=== PATIENT | male | born 1965 | race Hispanic/Latino ===

== ENCOUNTER 2016-09-12 20:28 | Inpatient (IN) | payer OTHER ==
--- NOTE | 2016-09-12 21:45 | ED PDOC ---
HPI: Chest Pain Time Seen by Provider: 09/12/16 20:44 Chief Complaint (Nursing): Abdominal Pain Chief Complaint (Provider): Right Rib Pain History Per: Patient History/Exam Limitations: no limitations Onset/Duration Of Symptoms: Days (since yesterday) Current Symptoms Are (Timing): Still Present Severity: Moderate Exacerbating Factors: Deep Breathing (causes pain to radiate up towards right shoulder) Additional Complaint(s): Osei Harris is a 51 year old male, with a past medical history of a previous pulmonary embolism (stemming from DVT induced by long plane ride), who presents to the ED on 09/12/16, accompanied by his , for the evaluation of a moderate amount of atraumatic, right-sided rib pain that he has experienced since yesterday; with reported radiation towards his right shoulder upon deep inspiration. Though pain has improved since onset, patient is still concerned regarding possible new PE, prompting ED visit. Denies shortness of breath, dizziness/lightheadedness, extremity pain/swelling or recent long distance travel/limb immobilization. Of note, patient does admit to having exercised recently in relation to onset of pain. PMD: Gavin Rodarte Past Medical History Reviewed: Historical Data, Nursing Documentation, Vital Signs Vital Signs: Last Vital Signs Temp 97.7 F 09/12/16 20:30 Pulse 82 09/12/16 20:30 Resp 18 09/12/16 20:30 BP 151/92 H 09/12/16 20:30 Pulse Ox 99 09/13/16 00:28 - Medical History PMH: Deep Vein Thrombosis, Pulmonary Embolism - Surgical History Surgical History: No Surg Hx - Family History Family History: States: Unknown Family Hx - Living Arrangements Living Arrangements: With Family - Social History Current smoker - smoking cessation education provided: No Alcohol: None Drugs: Denies - Allergies Allergies/Adverse Reactions: Allergies Allergy/AdvReac Type Severity Reaction Status Date / Time No Known Allergies Allergy Verified 09/12/16 20:34 Review of Systems Cardiovascular: Negative for: Edema Respiratory: Negative for: Shortness of Breath Musculoskeletal: Positive for: Other (right-sided rib pain w/radiation to right shoulder upon deep inspiration). Negative for: Leg Pain Physical Exam - Reviewed Nursing Documentation Reviewed: Yes Vital Signs Reviewed: Yes - Physical Exam Appears: Positive for: Non-toxic, No Acute Distress Head Exam: Positive for: ATRAUMATIC, NORMOCEPHALIC Skin: Positive for: Normal Color, Warm, Dry Eye Exam: Positive for: Normal appearance, PERRL Cardiovascular/Chest: Positive for: Regular Rate, Rhythm. Negative for: Edema, Murmur Respiratory: Positive for: Normal Breath Sounds. Negative for: Respiratory Distress Extremity: Positive for: Normal ROM (FROM x4 extremities). Negative for: Swelling Neurologic/Psych: Positive for: Alert, Oriented - Laboratory Results Result Diagrams: 09/12/16 22:19 09/12/16 22:19 - ECG O2 Sat by Pulse Oximetry: 99 (RA) Pulse Ox Interpretation: Normal - Radiology X-Ray: Interpreted by Me, Viewed By Me X-Ray Interpretation: No Acute Disease Medical Decision Making Medical Decision Makin:44 Initial Impression: right-sided rib pain Initial Plan: * CXR * D-Dimer * Flexeril 10mg PO * Reevaluation CXR is negative as read by MD provider. Pending D-Dimer. 22:04 D-Dimer is elevated at 2.67. Will order CT Angio Chest, Labs, Troponin I, PTT, PT and place onto site monitor. 0000: Received call from [facility] radiologist that patient has bilateral pulmonary emboli. Case discussed with Dr. Springer who accepts admission. Informed patient of diagnosis and patient admitted to obs tele. Scribe Attestation: Documented by Hamida De La Vega, acting as a scribe for Taran Garcia MD. Provider Scribe Attestation: All medical record entries made by the Scribe were at my direction and personally dictated by me. I have reviewed the chart and agree that the record accurately reflects my personal performance of the history, physical exam, medical decision making, and the department course for this patient. I have also personally directed, reviewed, and agree with the discharge instructions and disposition. Disposition - Clinical Impression Clinical Impression: Bilateral pulmonary embolism - Patient ED Disposition Is Patient to be Admitted: Yes Discussed With DrLeena: Santo Springer - Disposition Disposition Time: 00:00 Condition: STABLE
[2016-09-12 22:26] LABS: BASO # 0.1 K/uL (0.0-0.2); BASO % 0.7 % (0.0-2.0); EOS # 0.2 K/uL (0.0-0.7); EOS % 2.3 % (0.0-4.0); HEMATOCRIT 43.9 % (35.0-51.0); LYMPH % 27.6 % (20.0-40.0); MEAN CELL VOLUME 91.4 fl (80.0-94.0); MEAN CORPUSCULAR HEMOGLOBIN 30.8 pg (27.0-31.0); MEAN CORPUSCULAR HGB CONC 33.7 g/dL (33.0-37.0); MONO # 0.9 K/uL (0.0-0.8); MONO % 7.9 % (0.0-10.0); NEUT # 6.7 K/uL (1.8-7.0); NEUT % 61.5 % (50.0-75.0); NRBC % 0.2 % (0.0-0.0); RED CELL DISTRIBUTION WIDTH 13.1 % (11.5-14.5); WHITE BLOOD COUNT 10.8 K/uL (4.8-10.8)
[2016-09-12 22:27] LABS: PARTIAL THROMBOPLASTIN TIME 26.6 SECONDS (23.3-32.5)
[2016-09-12 22:45] LABS: BLOOD UREA NITROGEN 28 mg/dl (9-20); CALCIUM 9.6 mg/dL (8.4-10.2); CARBON DIOXIDE 24 mmol/L (22-30); CHLORIDE 102 mmol/L (98-107); GFR AFRICAN-AMERICAN > 60; GLUCOSE,RANDOM 92 mg/dL (75-110); POTASSIUM 4.2 MMOL/L (3.6-5.0); SODIUM 138 mmol/l (132-148)
[2016-09-12] MEDS ORDERED: Sodium Chloride 0.9% 50 ML IV ONE (22:57)
[2016-09-12] MEDS ORDERED: Iodixanol 320 MG/ML 100 ML BOTTLE IV ONE (22:57)
[2016-09-13] MEDS ORDERED: Enoxaparin 100 mg Syringe SC STA (00:03)
--- NOTE | 2016-09-13 07:41 | CARD ---
APPROVED REPORT EKG Measurement Heart [id number] <Conclusion> Normal sinus rhythm Normal ECG
--- NOTE | 2016-09-13 08:07 | CT ---
PROCEDURE: CT Chest with contrast (Pulmonary Angiogram) HISTORY: hx of PE c/o of R sided rib/CP, r/o PE COMPARISON: None available. TECHNIQUE: Axial computed tomography images were obtained of the chest in the pulmonary arterial phase of enhancement. Coronal and sagittal reformatted images were created and reviewed. Maximum intensity projection (MIP) reconstructed images in the following planes: Axial projection only. Intravenous contrast dose: 99 cc Visipaque 320 Mean Hounsfield unit values in the main pulmonary artery: 198.1 Radiation dose: Total exam DLP = 227.42 mGy-cm. FINDINGS: PULMONARY ARTERIES: Bilateral lower lobe pulmonary emboli primarily at the segmental level affecting lower lobe branches right greater than left. Additional small upper lobe emboli on the right. AORTA: No acute findings. No thoracic aortic aneurysm. LUNGS: Right lower lobe infiltrate which may represent subsegmental infarction basilar segment right lower lobe. PLEURAL SPACES: Unremarkable. No effusion or pneuomothorax. HEART: Unremarkable. No cardiomegaly. No significant pericardial effusion. LYMPH NODES: No lymphadenopathy. BONES, CHEST WALL: Unremarkable. No fracture or destructive lesion OTHER FINDINGS: Unremarkable. IMPRESSION: Acute bilateral lower lobe pulmonary emboli and to a lesser extent right upper lobe embolic disease. No central pulmonary emboli. Findings right lower lobe may represent early pulmonary parenchymal infarction. Concordant results (preliminary interpretation) provided by [employer]. Procedure Completed: 23:13. Preliminary ([facility]) Report: Dictated and Authenticated: 23:52. Final Interpretation: 08:05. September 13, 2016.
[2016-09-13 08:42] LABS: BASO % 0.4 % (0.0-2.0); EOS # 0.2 K/uL (0.0-0.7); EOS % 2.1 % (0.0-4.0); LYMPH # 2.1 K/uL (1.0-4.3); LYMPH % 23.2 % (20.0-40.0); MEAN CELL VOLUME 91.4 fl (80.0-94.0); MEAN CORPUSCULAR HEMOGLOBIN 30.6 pg (27.0-31.0); MEAN CORPUSCULAR HGB CONC 33.5 g/dL (33.0-37.0); MEAN PLATELET VOLUME 8.3 fl (7.2-11.7); MONO # 0.8 K/uL (0.0-0.8); MONO % 8.8 % (0.0-10.0); NEUT # 5.8 K/uL (1.8-7.0); NEUT % 65.5 % (50.0-75.0); WHITE BLOOD COUNT 8.9 K/uL (4.8-10.8)
[2016-09-13 08:48] LABS: ALB/GLOB RATIO 1.2 (1.0-2.1); ALKALINE PHOSPHATASE 69 U/L (38-126); ALT/SGPT 35 U/L (21-72); AST/SGOT 25 U/L (17-59); BILIRUBIN,TOTAL 1.1 mg/dl (0.2-1.3); BLOOD UREA NITROGEN 20 mg/dl (9-20); CALCIUM 9.1 mg/dL (8.4-10.2); CARBON DIOXIDE 23 mmol/L (22-30); CHLORIDE 103 mmol/L (98-107); GFR AFRICAN-AMERICAN > 60; GLUCOSE,RANDOM 98 mg/dL (75-110); POTASSIUM 4.1 MMOL/L (3.6-5.0); SODIUM 136 mmol/l (132-148); TOTAL PROTEIN 7.6 G/DL (6.3-8.2)
--- NOTE | 2016-09-13 09:40 | US ---
Bilateral lower extremity venous Doppler dated 09/13/2016. History: Rule out DVT. Duplex interrogation of the deep veins of the right and left lower extremities performed in standard fashion. No prior study available for comparison. Findings: There is noncompressible thrombus within the left posterior tibial vein consistent with DVT. The remaining deep veins of the left lower extremity as well as the visualized deep veins right lower extremity exhibit normal flow, compressibility augmentation without evidence of DVT. Impression: Noncompressible thrombus (DVT) within the left posterior tibial vein. Findings discussed with primary Nurse Horacio at approximately at 9:35 a.m. with written down and read back verification.
--- NOTE | 2016-09-13 12:01 | RAD ---
HISTORY: R sided rib/chest pain COMPARISON: No prior. TECHNIQUE: Chest PA and lateral FINDINGS: LUNGS: No active pulmonary disease. PLEURA: No significant pleural effusion identified. No pneumothorax apparent. CARDIOVASCULAR: Normal. OSSEOUS STRUCTURES: No significant abnormalities. VISUALIZED UPPER ABDOMEN: Normal. OTHER FINDINGS: None. IMPRESSION: No active disease. Concordant results with the preliminary interpretation rendered by the emergency department physician procedure.
--- NOTE | 2016-09-13 14:18 | CP.PCM.HP ---
<Litzy Blanco - Last Filed: 09/13/16 15:04> History of Present Illness - History of Present Illness History of Present Illness: Pt is a 51 year old male, with a pmhx of Factor V leiden and pulmonary embolism 11 yrs ago (stemming from DVT induced by long plane ride), who presents to the ED with complaints of right-sided rib pain that he experienced since the day before; with reported radiation towards his right shoulder upon deep inspiration. Though pain has improved since onset, patient is still concerned regarding possible new PE, prompting ED visit. Denies shortness of breath, dizziness/lightheadedness, extremity pain/swelling or recent long distance travel/limb immobilization. Pt was seen and evaluated at bedside this morning, states pain in controlled, denies any shortness breath. states when he first got the PE 11 yrs ago, he was started on warfarin but told to only take it 3 days prior to flying only. but he has not taken warfarin for over a year now, and traveled by plane to [place] a month ago PMD: Gavin Rodarte Present on Admission - Present on Admission Any Indicators Present on Admission: No Review of Systems - Review of Systems All systems: reviewed and no additional remarkable complaints except Review of Systems: Per HPI Past Patient History - Past Social History Alcohol: None Drugs: Denies - PULMONARY Hx Pulmonary Embolism: Yes - PSYCHIATRIC Hx Substance Use: No Meds Allergies/Adverse Reactions: Allergies Allergy/AdvReac Type Severity Reaction Status Date / Time No Known Allergies Allergy Verified 09/12/16 20:34 Physical Exam - Constitutional Appears: No Acute Distress - Head Exam Head Exam: NORMOCEPHALIC - Eye Exam Eye Exam: Normal appearance - ENT Exam ENT Exam: Mucous Membranes Moist - Respiratory Exam Respiratory Exam: Clear to Auscultation Bilateral, NORMAL BREATHING PATTERN. absent: Rhonchi, Wheezes - Cardiovascular Exam Cardiovascular Exam: REGULAR RHYTHM - GI/Abdominal Exam GI & Abdominal Exam: Normal Bowel Sounds, Soft. absent: Tenderness - Extremities Exam Extremities exam: Positive for: normal inspection. Negative for: calf tenderness, joint swelling, tenderness - Neurological Exam Neurological exam: Alert, CN II-XII Intact, Oriented x3 - Skin Skin Exam: Normal Color Results - Vital Signs Recent Vital Signs: Last Vital Signs Temp 98.2 F 09/13/16 07:27 Pulse 85 09/13/16 07:27 Resp 18 09/13/16 07:27 BP 134/74 09/13/16 07:27 Pulse Ox 98 09/13/16 07:27 - Labs Result Diagrams: 09/13/16 08:20 09/13/16 08:20 Labs: Laboratory Results - last 24 hr 09/13/16 08:20 WBC 8.9 RBC 4.71 Hgb 14.4 Hct 43.0 MCV 91.4 MCH 30.6 MCHC 33.5 RDW 13.0 Plt Count 213 MPV 8.3 Neut % (Auto) 65.5 Lymph % (Auto) 23.2 [place] % (Auto) 8.8 Eos % (Auto) 2.1 Baso % (Auto) 0.4 Neut # 5.8 Lymph # 2.1 [place] # 0.8 Eos # 0.2 Baso # 0.0 Sodium 136 Potassium 4.1 Chloride 103 Carbon Dioxide 23 Anion Gap 14 BUN 20 Creatinine 0.9 Est GFR ( Amer) > 60 Est GFR (Non-Af Amer) > 60 Random Glucose 98 Calcium 9.1 Total Bilirubin 1.1 AST 25 ALT 35 Alkaline Phosphatase 69 Troponin I < 0.0120 Total Protein 7.6 Albumin 4.1 Globulin 3.4 Albumin/Globulin Ratio 1.2 Assessment & Plan - Assessment and Plan (Free Text) Assessment: 51 y/o male with history of Factor V Leiden and previous PE and DVT admitted for a bilateral PE Plan: Bilateral Pulmonary Embolism on therapeutic dose of lovenox - 90mg Q12 SC Hematology consulted- Dr. kulkarni consulted Hypercoagulable studies done previously- known to have factor v Leiden deficiency diet- regular pain management as ordered <Santo Springer - Last Filed: 09/14/16 09:48> Results - Vital Signs Recent Vital Signs: Last Vital Signs Temp 98.3 F 09/14/16 08:14 Pulse 82 09/14/16 08:14 Resp 18 09/14/16 08:14 BP 118/74 09/14/16 08:14 Pulse Ox 96 09/14/16 08:14 - Labs Result Diagrams: 09/13/16 08:20 09/13/16 08:20 Assessment & Plan - Assessment and Plan (Free Text) Plan: I was with Dr Blanco during evaluation and I examined patient. Discussed with Dr Blanco and patient re treatment options including possible filter insertion. Called hematology. will continue Lovenox at txtic dose. will need buttermaker anticoagulation.
[2016-09-13] MEDS: Enoxaparin 100 mg Syringe SC SCH ×2 (15:10→15:12)
[2016-09-13] MEDS ORDERED: Oxycodone/Acetaminophen 5/325 mg Tab PO PRN (16:48)
--- NOTE | 2016-09-13 21:27 | CP.PCM.CON ---
<Jose De Jesus Calhoun - Last Filed: 09/13/16 21:38> History of Present Illness - History of Present Illness History of Present Illness: Surgery Consult: Dr. Vaughn Reason for consult: IVC filter placement for recurrent PE and DVT HPI: Patient is a 51 y/o male w/ significant pmhx of PE and factor V Leiden deficiency presents complaining of acute onset right lower lateral chest pain w / inspiration. He states the pain started acutely about 48 hours ago and progressively got worse prompting ED visit. He states he noticed some calf "cramping" in the LLE about 3 days prior to pleuritic pain onset but attributed it to exercise. He states he had similar episode in the past about 11 years ago in which he was diagnosed with PE. Patient reports at that time he had traveled to [facility] and noticed similar pain to as described above. Patient did not have it evaluated until he returned to the [facility]. He was admitted to the hospital and was started on lovenox at that time. Patient underwent hypercoagulable work up as well which showed factor V Leiden deficiency. Patient was transitioned to Warfarin which he continued for 3-4 months. After treatment, patient was instructed to take warfarin 3 days prior to any flight and 3 days post flight; however, he did not have to continue daily anticoagulation therapy. Patient recently traveled to [facility] 3-4 weeks ago and states he did not take Warfarin prior to flying due to flight being very short. Patient came to ED on this occurrence for evaluation of pain concerned of having recurrent PE. Patient evaluated with CT chest which showed acute bilateral segmental PE on right > left side. Patient is also noted to have DVT in LLE tibial vein. Currently, patient denies any resting chest pain or SOB. He denies pain in the LE. He reports having pain to the right lateral inferior chest wall with deep breathing which is well controlled with pain medication. PMH: Factor V Lieden, PE PSH: denies Social: denies ETOH, tobacco, or drug abuse. Active male w/ exercise and bike riding. Review of Systems - Review of Systems Review of Systems: unless stated in HPI - Constitutional Constitutional: absent: Chills, Fever - EENT Eyes: absent: Blurred Vision, Change in Vision Nose/Mouth/Throat: absent: Nasal Congestion, Sinus Pain - Cardiovascular Cardiovascular: Chest Pain (on the right lateral inferior chest wall, pleuritic in nature ). absent: Chest Pain at Rest, Dyspnea, Leg Edema, Pedal Edema, Syncope - Respiratory Respiratory: Pain on Inspiration. absent: Cough, Wheezing, Excessive Mucous Production - Gastrointestinal Gastrointestinal: absent: Abdominal Pain, Cramping, Diarrhea - Genitourinary Genitourinary: absent: Hematuria, Pyuria - Musculoskeletal Musculoskeletal: absent: Back Pain, Neck Pain - Neurological Neurological: absent: Dizziness, Syncope - Endocrine Endocrine: absent: Polydipsia, Polyphagia - Hematologic/Lymphatic Hematologic: absent: Easy Bleeding, Easy Bruising Past Patient History - Past Medical History & Family History Past Medical History?: Yes - Past Social History Smoking Status: Never Smoked - CARDIAC Hx Cardiac Disorders: No - PULMONARY Hx Respiratory Disorders: Yes Hx Pulmonary Embolism: Yes - NEUROLOGICAL Hx Neurological Disorder: No - HEENT Hx HEENT Problems: No - RENAL Hx Chronic Kidney Disease: No - ENDOCRINE/METABOLIC Hx Endocrine Disorders: No - HEMATOLOGICAL/ONCOLOGICAL Hx Blood Disorders: Yes Other/Comment: Factor V Leiden - INTEGUMENTARY Hx Dermatological Problems: No - MUSCULOSKELETAL/RHEUMATOLOGICAL Hx Musculoskeletal Disorders: No Hx Falls: No - GASTROINTESTINAL Hx Gastrointestinal Disorders: No - GENITOURINARY/GYNECOLOGICAL Hx Genitourinary Disorders: No - PSYCHIATRIC Hx Psychophysiologic Disorder: No Hx Substance Use: No - SURGICAL HISTORY Hx Surgeries: No - ANESTHESIA Hx Anesthesia: No Hx Anesthesia Reactions: No Meds Allergies/Adverse Reactions: Allergies Allergy/AdvReac Type Severity Reaction Status Date / Time No Known Allergies Allergy Verified 09/12/16 20:34 - Medications Medications: Current Medications Enoxaparin Sodium (Lovenox) 90 mg SC Q12@0200,1400 CHERIE PRN Reason: Protocol Last Admin: 09/13/16 15:12 Dose: 90 mg Ketorolac Tromethamine (Toradol) 10 mg PO Q6 PRN PRN Reason: Pain, moderate (4-7) Oxycodone/Acetaminophen (Percocet 5/325 Mg Tab) 2 tab PO Q4 PRN PRN Reason: Pain, severe (8-10) Stop: 09/16/16 19:45 Physical Exam - Constitutional Appears: Well, Non-toxic, No Acute Distress - Head Exam Head Exam: ATRAUMATIC, NORMOCEPHALIC - Eye Exam Eye Exam: EOMI, Normal appearance - ENT Exam ENT Exam: Mucous Membranes Moist - Respiratory Exam Respiratory Exam: NORMAL BREATHING PATTERN. absent: Respiratory Distress - Cardiovascular Exam Cardiovascular Exam: REGULAR RHYTHM. absent: Tachycardia - GI/Abdominal Exam GI & Abdominal Exam: Soft. absent: Distended, Tenderness - Extremities Exam Extremities exam: Positive for: calf tenderness (minimal on left), normal inspection - Neurological Exam Neurological exam: Alert, Oriented x3 - Psychiatric Exam Psychiatric exam: Normal Affect, Normal Mood - Skin Skin Exam: Dry, Intact, Normal Color, Warm Results - Vital Signs Recent Vital Signs: Last Vital Signs Temp 98.6 F 09/13/16 19:27 Pulse 90 09/13/16 19:30 Resp 20 09/13/16 19:30 BP 127/82 09/13/16 19:27 Pulse Ox 97 09/13/16 19:30 - Labs Result Diagrams: 09/13/16 08:20 09/13/16 08:20 Assessment & Plan - Assessment and Plan (Free Text) Assessment: 51 y/o male w/ recurrent PE and DVT w/ underlying hypercoagulable state Plan: -patient will need IVC filter -cont anticoagulation for now -f/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 Vaughn, further recs per him AKWhite PGY1 <Thien Vaughn - Last Filed: 09/14/16 11:51> History of Present Illness - History of Present Illness History of Present Illness: Patient was seen and examined at the bedside. Agree with resident's note above Meds - Medications Medications: Current Medications Enoxaparin Sodium (Lovenox) 90 mg SC Q12@0200,1400 CHERIE PRN Reason: Protocol Last Admin: 09/14/16 02:07 Dose: 90 mg Ketorolac Tromethamine (Toradol) 10 mg PO Q6 PRN PRN Reason: Pain, moderate (4-7) Morphine Sulfate (Morphine) 2 mg IVP Q6 PRN PRN Reason: Pain, severe (8-10) Last Admin: 09/14/16 11:13 Dose: 2 mg Oxycodone/Acetaminophen (Percocet 5/325 Mg Tab) 2 tab PO Q4 PRN PRN Reason: Pain, moderate (4-7) Stop: 09/16/16 19:45 Last Admin: 09/14/16 10:03 Dose: 2 tab Results - Vital Signs Recent Vital Signs: Last Vital Signs Temp 98.3 F 09/14/16 08:14 Pulse 82 09/14/16 09:00 Resp 18 09/14/16 08:14 BP 118/74 09/14/16 08:14 Pulse Ox 96 09/14/16 08:14 - Labs Result Diagrams: 09/13/16 08:20 09/13/16 08:20 Labs: Laboratory Results - last 24 hr 09/14/16 10:51 PT 11.4 H INR 1.10 H Assessment & Plan - Assessment and Plan (Free Text) Plan: Patient wants to be transferred to [place] for further treatment. No surgical intervention at present time, patient does not want to be treated at [facility]. Will sign off, please reconsult as needed
[2016-09-13] MEDS: Oxycodone/Acetaminophen 5/325 mg Tab PO PRN (22:34)
--- NOTE | 2016-09-14 01:47 | CP.PCM.CON ---
History of Present Illness - History of Present Illness History of Present Illness: 51 year old male with a history of factor V Leiden mutation complicated by provoked DVT/PE 11 years ago admitted with recurrent PE/DVT. The patient reports to a recent flight to [place] and notes sharp rib pain and left calf pain. He decided to come to the ER and was found to have PE and LLE DVT. Past medical history: Factor V leiden mutation, DVT/PE Past surgical history: None Family history: Sisters have Factor V Leiden mutation Social history: Denies tobacco, alcohol, and illicit drug use. Allergies: NKA Review of systems: All remaining review of systems including HEENT, cardiovascular, respiratory, gastrointestinal, genitourinary, musculoskeletal, dermatologic, neurologic, and psychiatric are negative unless mentioned in the HPI. Past Patient History - Past Medical History & Family History Past Medical History?: Yes - Past Social History Smoking Status: Never Smoked - CARDIAC Hx Cardiac Disorders: No - PULMONARY Hx Respiratory Disorders: Yes Hx Pulmonary Embolism: Yes - NEUROLOGICAL Hx Neurological Disorder: No - HEENT Hx HEENT Problems: No - RENAL Hx Chronic Kidney Disease: No - ENDOCRINE/METABOLIC Hx Endocrine Disorders: No - HEMATOLOGICAL/ONCOLOGICAL Hx Blood Disorders: Yes Other/Comment: Factor V Leiden - INTEGUMENTARY Hx Dermatological Problems: No - MUSCULOSKELETAL/RHEUMATOLOGICAL Hx Musculoskeletal Disorders: No Hx Falls: No - GASTROINTESTINAL Hx Gastrointestinal Disorders: No - GENITOURINARY/GYNECOLOGICAL Hx Genitourinary Disorders: No - PSYCHIATRIC Hx Psychophysiologic Disorder: No Hx Substance Use: No - SURGICAL HISTORY Hx Surgeries: No - ANESTHESIA Hx Anesthesia: No Hx Anesthesia Reactions: No Meds Allergies/Adverse Reactions: Allergies Allergy/AdvReac Type Severity Reaction Status Date / Time No Known Allergies Allergy Verified 09/12/16 20:34 - Medications Medications: Current Medications Enoxaparin Sodium (Lovenox) 90 mg SC Q12@0200,1400 CHERIE PRN Reason: Protocol Last Admin: 09/13/16 15:12 Dose: 90 mg Ketorolac Tromethamine (Toradol) 10 mg PO Q6 PRN PRN Reason: Pain, moderate (4-7) Oxycodone/Acetaminophen (Percocet 5/325 Mg Tab) 2 tab PO Q4 PRN PRN Reason: Pain, severe (8-10) Stop: 09/16/16 19:45 Last Admin: 09/13/16 22:34 Dose: 2 tab Physical Exam - Head Exam Head Exam: ATRAUMATIC - Eye Exam Eye Exam: Normal appearance - ENT Exam ENT Exam: Mucous Membranes Dry - Respiratory Exam Respiratory Exam: NORMAL BREATHING PATTERN - Cardiovascular Exam Cardiovascular Exam: +S1, +S2 - GI/Abdominal Exam GI & Abdominal Exam: Normal Bowel Sounds - Extremities Exam Extremities exam: Positive for: normal inspection - Neurological Exam Neurological exam: Oriented x3 - Psychiatric Exam Psychiatric exam: Normal Affect, Normal Mood - Skin Skin Exam: Warm Results - Vital Signs Recent Vital Signs: Last Vital Signs Temp 99.7 F H 09/13/16 23:39 Pulse 78 09/13/16 23:39 Resp 19 09/13/16 23:39 BP 119/76 09/13/16 23:39 Pulse Ox 96 09/13/16 23:39 - Labs Result Diagrams: 09/13/16 08:20 09/13/16 08:20 Assessment & Plan (1) Bilateral pulmonary embolism Assessment and Plan: provoked, Factor V Leiden mutation with DVT; for retrievable IVC filter placement evaluation therapeutic anticoagulation; discussed terminal press operator anticoagulation, pt considering pradaxa Thank you for this interesting consult. Status: Acute
[2016-09-14] MEDS ORDERED: Enoxaparin 100 mg Syringe SC SCH (02:00)
[2016-09-14] MEDS: Enoxaparin 100 mg Syringe SC SCH ×2 (02:07→13:21)
[2016-09-14] MEDS: Oxycodone/Acetaminophen 5/325 mg Tab PO PRN ×2 (02:12→06:12)
--- NOTE | 2016-09-14 08:49 | CP.PCM.PN ---
<Garrett Wagoner - Last Filed: 09/14/16 08:51> Subjective - Date & Time of Evaluation Date of Evaluation: 09/14/16 Time of Evaluation: 06:50 - Subjective Subjective: Gen Surg: Dr. Vaughn Patient seen and examined this AM. Patient reports pleuritic pain. States pain medication helps. Patient is concerned about risks vs benefits of IVC filter placement. States he wants to weigh out all of his options before making a decision. Currently denies fever/chills. Reports his leg edema has improved. Review of vitals is normal. Objective - Vital Signs/Intake and Output Vital Signs (last 24 hours): Temp Pulse Resp BP Pulse Ox 98.3 F 82 18 118/74 96 09/14/16 08:14 09/14/16 08:14 09/14/16 08:14 09/14/16 08:14 09/14/16 08:14 - Medications Medications: Current Medications Enoxaparin Sodium (Lovenox) 90 mg SC Q12@0200,1400 CHERIE PRN Reason: Protocol Last Admin: 09/14/16 02:07 Dose: 90 mg Ketorolac Tromethamine (Toradol) 10 mg PO Q6 PRN PRN Reason: Pain, moderate (4-7) Oxycodone/Acetaminophen (Percocet 5/325 Mg Tab) 2 tab PO Q4 PRN PRN Reason: Pain, severe (8-10) Stop: 09/16/16 19:45 Last Admin: 09/14/16 06:12 Dose: 2 tab - Labs Labs: PT 11.0 SECONDS (9.6-11.2) 09/12/16 22:19 INR 1.06 (0.92-1.08) 09/12/16 22:19 APTT 26.6 SECONDS (23.3-32.5) 09/12/16 22:19 - Constitutional Appears: Non-toxic - Head Exam Head Exam: NORMOCEPHALIC - Eye Exam Eye Exam: Normal appearance - ENT Exam ENT Exam: Mucous Membranes Moist - Cardiovascular Exam Cardiovascular Exam: +S1, +S2 - GI/Abdominal Exam GI & Abdominal Exam: Soft - Extremities Exam Extremities Exam: Pedal Edema Additional comments: resolving - Neurological Exam Neurological Exam: Alert, Awake, Oriented x3 - Psychiatric Exam Psychiatric exam: Normal Mood - Skin Skin Exam: Dry, Intact, Warm Assessment and Plan - Assessment and Plan (Free Text) Assessment: 51 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 -cont reg diet -scheduling of filter placement to be determined -Further recs per Dr. Vaughn, will discuss <Thien Vaughn - Last Filed: 09/14/16 11:53> Subjective - Date & Time of Evaluation Date of Evaluation: 09/14/16 Time of Evaluation: 10:30 - Subjective Subjective: Patient was seen and examined at the bedside. Patient want to be treated at the outside facility. Will sign off, please reconsult as needed Objective - Vital Signs/Intake and Output Vital Signs (last 24 hours): Temp Pulse Resp BP Pulse Ox 98.3 F 82 18 118/74 96 09/14/16 08:14 09/14/16 09:00 09/14/16 08:14 09/14/16 08:14 09/14/16 08:14 - Medications Medications: Current Medications Enoxaparin Sodium (Lovenox) 90 mg SC Q12@0200,1400 CHERIE PRN Reason: Protocol Last Admin: 09/14/16 02:07 Dose: 90 mg Ketorolac Tromethamine (Toradol) 10 mg PO Q6 PRN PRN Reason: Pain, moderate (4-7) Morphine Sulfate (Morphine) 2 mg IVP Q6 PRN PRN Reason: Pain, severe (8-10) Last Admin: 09/14/16 11:13 Dose: 2 mg Oxycodone/Acetaminophen (Percocet 5/325 Mg Tab) 2 tab PO Q4 PRN PRN Reason: Pain, moderate (4-7) Stop: 09/16/16 19:45 Last Admin: 09/14/16 10:03 Dose: 2 tab - Labs Labs: PT 11.4 SECONDS (9.6-11.2) H 09/14/16 10:51 INR 1.10 (0.92-1.08) H 09/14/16 10:51 APTT 26.6 SECONDS (23.3-32.5) 09/12/16 22:19
[2016-09-14] MEDS ORDERED: Oxycodone/Acetaminophen 5/325 mg Tab PO PRN (09:42)
--- NOTE | 2016-09-14 10:26 | CON ---
DATE: 09/14/2016 The patient is a 51-year-old male who was referred for pulmonary evaluation because of acute pulmonar y emboli and left lower extremity DVT. He indicates that he had the sudden of right-sided chest and mild shortness of breath, left lower extremity pain before coming to the hospital, and was admitted f or acute pulmonary emboli, and DVT of the left lower extremity. He had a similar episode 11 years ag o and was treated for deep venous thrombosis due to factor V Leiden mutation. He has no other remark able medical history. FAMILY HISTORY: Remarkable for a sister who has factor V Leiden mutation. 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 PHYSICAL EXAMINATION: GENERAL: The patient is alert, oriented, appears still to be in mild distress when he takes a deep b reath because of right-sided pleuritic chest pain. VITAL SIGNS: Remarkable for blood pressure of 123/81, pulse of 78, respiratory rate 20 per minute. He is afebrile. O2 sat 95% on room air. SKIN: Shows fair turgor. HEENT: Pupils equal and reactive to light and accommodation. NECK: JVP is flat. Mouth shows fair hygiene. LUNGS: Fair aeration with splinting, right side, due to pain. No rales or wheezing appreciated. HEART: Regular. No murmurs or gallops. ABDOMEN: Soft, nontender, no organomegaly. EXTREMITIES: Show no edema or cyanosis. Left lower extremity shows minimal tenderness. LABORATORY DATA: Remarkable for WBC of 8.9, hemoglobin 14.4, platelet count of 213,000. Sodium 136, potassium 4.1. BUN of 20, creatinine 0.9. Troponin less than 0.012. PT 11.0, INR 1.0. D-dimer 2. 67. CT scan of chest shows bilateral pulmonary emboli. Ultrasound of lower extremities is remarkable for left posterior tibial vein DVT. IMPRESSION: Acute pulmonary emboli, acute left lower extremity deep venous thrombosis, history of fa ctor V Leiden mutation. PLAN: Suggest continuation of anticoagulation as ordered. The patient has already been seen by the steam shovelman, and Pradaxa orally has been advised for outpatient therapy. The patient needs to be on this for at least 6 months, and consideration of lifetime anticoagulation might be in order since t he patient has factor mutation that is probably responsible for recurrent DVT and pulmonary emboli. The patient's was also informed of IVC filter, which he is reluctant to have at present, but will thi nk about it since he has a left lower extremity deep venous thrombosis that might embolize and cause more pulmonary emboli. He indicates that he might just be willing to take anticoagulation by mouth f or a longer period of time, and will discuss IVC filter placement further with his primary care docto r. Wiliam Briones MD cc: [id number] TT: 09/14/2016 10:25:22 Confirmation # [id number] Dictation # [id number]
[2016-09-14 12:34] VITALS: PULSE 85
--- NOTE | 2016-09-14 14:43 | CP.PCM.PN ---
Subjective - Date & Time of Evaluation Date of Evaluation: 09/14/16 Time of Evaluation: 10:45 - Subjective Subjective: Pt seen and examined at bedside today with Dr. Springer, he states he was seen by the mechatronics engineer, pattern setter and surgery team and has weighed the benefits of IVC filter but currently would decline, he is considering pradaxa but he would like to be transferred to [facility] to be managed there. Currently pain is controlled with pain medication Objective - Vital Signs/Intake and Output Vital Signs (last 24 hours): Temp Pulse Resp BP Pulse Ox 99 F 85 18 129/79 95 09/14/16 12:33 09/14/16 12:33 09/14/16 12:33 09/14/16 12:33 09/14/16 12:33 - Medications Medications: Current Medications Enoxaparin Sodium (Lovenox) 90 mg SC Q12@0200,1400 CHERIE PRN Reason: Protocol Last Admin: 09/14/16 13:21 Dose: 90 mg Ketorolac Tromethamine (Toradol) 10 mg PO Q6 PRN PRN Reason: Pain, moderate (4-7) Morphine Sulfate (Morphine) 2 mg IVP Q6 PRN PRN Reason: Pain, severe (8-10) Last Admin: 09/14/16 11:13 Dose: 2 mg Oxycodone/Acetaminophen (Percocet 5/325 Mg Tab) 2 tab PO Q4 PRN PRN Reason: Pain, moderate (4-7) Stop: 09/16/16 19:45 Last Admin: 09/14/16 10:03 Dose: 2 tab - Labs Labs: PT 11.4 SECONDS (9.6-11.2) H 09/14/16 10:51 INR 1.10 (0.92-1.08) H 09/14/16 10:51 APTT 26.6 SECONDS (23.3-32.5) 09/12/16 22:19 - Constitutional Appears: Non-toxic, No Acute Distress - Head Exam Head Exam: NORMOCEPHALIC - Eye Exam Eye Exam: Normal appearance - ENT Exam ENT Exam: Mucous Membranes Moist - Respiratory Exam Respiratory Exam: Clear to Ausculation Bilateral, NORMAL BREATHING PATTERN. absent: Rhonchi, Wheezes - Cardiovascular Exam Cardiovascular Exam: REGULAR RHYTHM, +S1, +S2 - GI/Abdominal Exam GI & Abdominal Exam: Soft, Normal Bowel Sounds. 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
[2016-09-14 16:09] VITALS: BP 136/79; RESP 20; TEMP 99.4; O2SAT 94
== END 2016-09-14 15:30 | disposition short-term general hospital (02) | DRG 176 ==
LOC: H.ER 20:28 → H.ERHOLD 09-13 00:04 → H.TEL 09-13 18:11 → OBSVTOIN 09-13 19:45
PROVIDERS: ADMIT Family Medicine; ATTEND Family Medicine
DX: I26.99 Other pulmonary embolism without acute cor pulmonale (principal); D68.51 Activated protein C resistance; I82.442 Acute embolism and thrombosis of left tibial vein; Z86.718 Personal history of other venous thrombosis and embolism; Z86.711 Personal history of pulmonary embolism